=== PATIENT | male | born 1995 | race Caucasian/White ===

== ENCOUNTER 2017-10-31 19:00 | Emergency (ER) | payer OTHER ==
[~2017-10-31] VITALS: Ht 182.9 cm; Wt 79.5 kg
[2017-10-31 19:56] LABS: BASOPHILS % (AUTO) 0.3 % (0-1); EOSINOPHILS % (AUTO) 0.1 % (0-6); HEMATOCRIT 44.1 % (42.0-52.0); HEMOGLOBIN 15.4 g/dl (14.0-17.9); LYMPHOCYTES # (AUTO) 0.9 X10'3 (1.1-4.8); LYMPHOCYTES % (AUTO) 9.1 % (21-51); MEAN CORPUSCULAR HEMOGLOBIN 32.3 PG (27.0-31.0); MEAN CORPUSCULAR HGB CONC 34.9 % (33.0-36.5); MEAN CORPUSCULAR VOLUME 92.6 FL (78-98); MEAN PLATELET VOLUME 8.1 FL (7.4-10.4); NEUTROPHILS # (AUTO) 7.6 X10'3 (1.8-7.7); NEUTROPHILS % (AUTO) 79.5 % (42-75); PLATELET COUNT 199 X10'3 (140-440); RED BLOOD COUNT 4.76 X10'6 (4.70-6.10); RED CELL DISTRIBUTION WIDTH 12.6 % (11.5-14.5); WHITE BLOOD COUNT 9.6 X10'3 (4.5-11.0)
[2017-10-31 20:19] LABS: ALANINE AMINOTRANSFERASE 14 U/L (12-78); ALBUMIN 4.2 G/DL (3.4-5.0); ALBUMIN/GLOBULIN RATIO 1.2 (1.1-1.5); ALKALINE PHOSPHATASE 80 IU/L (46-116); ANION GAP 9 (8-16); ASPARTATE AMINO TRANSFERASE 14 U/L (10-37); BLOOD UREA NITROGEN 14 MG/DL (7-18); BUN/CREATININE RATIO 16.9 (5.4-32.0); CALCIUM 9.1 MG/DL (8.5-10.1); CHLORIDE 102 MMOL/L (99-107); CREATININE 0.83 MG/DL (0.60-1.10); GLUCOSE 101 MG/DL (70-104); POTASSIUM 3.9 MMOL/L (3.5-5.1); SODIUM 137 MMOL/L (135-145); TOTAL CARBON DIOXIDE 26.4 MMOL/L (24-32); TOTAL PROTEIN 7.7 G/DL (6.4-8.2); eGFR > 90 ML/MIN
[2017-10-31] MEDS ORDERED: clindamycin 600mg/D5W 50ml 50 ML IV ONE (20:20)
[2017-10-31] MEDS ORDERED: morphine 4 MG/ML inj SYRINge IV ONE (20:20)
[2017-10-31] MEDS ORDERED: ibuprofen 200mg tablet PO ONE (20:20)
[2017-10-31] MEDS ORDERED: iohexol 300mg/ml 100ml inj. ONE (20:33)
[2017-10-31] MEDS ORDERED: ibuprofen 100 MG/5 ML oral susp PO STA (21:02)
[2017-10-31] MEDS ORDERED: ondansetron/PF 4mg/2ml inj IV ONE (21:20)
[2017-10-31 21:23] VITALS: BP 138/59
[2017-10-31] MEDS ORDERED: CLIN300C85 PO (22:59)
[2017-10-31] MEDS ORDERED: HYDR-3965 PO (22:59)
[2017-10-31] MEDS ORDERED: dexamethasone sod phosphate 10mg/ml inj IV STA (23:03)
== END 2017-10-31 23:22 ==
LOC: EEVIPCON 19:01 → ER 19:01
DX: K04.7 Periapical abscess without sinus (principal)
CPT/HCPCS: 36415; 70491; 80053; 85025; 96365; 96375; 99285; J1100; J2270; J2405; J3490; J7030; Q9967